=== PATIENT | male | born 1960 | race Caucasian/White ===

== ENCOUNTER 2023-12-16 07:37 | Emergency (ER) | payer OTHER, SELFPAY ==
--- NOTE | ~2023-12-16 | XR_ITS ---
Clinical Indication: Chest pain PA and lateral views of the chest: Comparison: None Findings: The lungs are clear, without evidence of focal consolidation or pleural effusion. Cardiome diastinal silhouette is within normal limits. Bones and soft tissues are unremarkable. Impression: Normal chest. Reviewed, dictated and finalized at location . Impression: Normal chest.
[2023-12-16 07:43] VITALS: BP 175/86; PULSE 61; RESP 17; TEMP 36.6; O2SAT 99
--- NOTE | 2023-12-16 07:43 | ECG_ITS ---
SEE SCANNED COPY FOR CONFIRMED REPORT MTDD
[2023-12-16 07:50] VITALS: O2SAT 98
[2023-12-16 07:57] VITALS: PULSE 58
[2023-12-16 07:58] VITALS: O2SAT 97
[2023-12-16 08:06] LABS: Basophils Absolute Auto 0.1 K/mm3 (0.0-0.1); Basophils Percent Auto 0.8 % (0.2-1.2); Eosinophils Absolute Auto 0.3 K/mm3 (0-0.3); Eosinophils Percent Auto 3.9 % (0-4.4); Hematocrit 34.2 % (42.0-52.0); Hemoglobin 10.6 g/dL (14.0-18.0); Immature Granulocyte Absolute 0.09 K/mm3 (0.00-0.031); Immature Granulocyte Percent A 1.3 % (0-0.5); Lymphocytes Absolute Auto 1.29 K/mm3 (0.9-3.2); Lymphocytes Percent Auto 18.1 % (18.3-44.2); Mean Corpuscular Hemoglobin 29.6 pg (26-34); Mean Corpuscular Volume 95.5 fl (80-100); Mean Platelet Volume 10.2 fl (7.4-10.4); Monocytes Absolute Auto 0.7 K/mm3 (0.1-0.6); Monocytes Percent Auto 9.8 % (2.6-8.5); Neutrophils Absolute Auto 4.7 K/mm3 (1.3-6.7); Neutrophils Percent Auto 66.1 % (45.5-73.1); Platelet Count Result 250 k/mm3 (150-375); Red Blood Count 3.58 M/mm3 (4.6-6.20); Red Cell Distribution Width 15.2 % (11.5-14.5); White Blood Count 7.1 K/mm3 (4.5-10.0)
[2023-12-16 08:15] LABS: Alanine Aminotransferase 21 U/L (6-50); Albumin Level 3.9 g/dL (3.5-5.1); Alkaline Phosphatase 109 U/L (38-126); Anion Gap 0 mmol/L (4-12); Aspartate Amino Transferase 24 U/L (17-59); Bilirubin,Total 0.5 mg/dL (0.2-1.3); Blood Urea Nitrogen 18 mg/dL (9-20); Calcium 10.1 mg/dL (8.4-10.2); Carbon Dioxide 31 mmol/L (22-30); Chloride 111 mmol/L (98-107); Estimated CRCL calculation 103 ml/min; Estimated Glomerular Filt Rate > 60; Glucose 134 mg/dL (65-110); Potassium 4.1 mmol/L (3.4-5.0); Sodium 142 mmol/L (137-145)
[2023-12-16 09:57] LABS: Troponin I < 0.012 ng/mL (0.000-0.034)
[2023-12-16 09:59] VITALS: BP 177/88; PULSE 58; RESP 14; O2SAT 98
[2023-12-16 10:05] VITALS: BP 179/85; PULSE 58; RESP 16; TEMP 36.7; O2SAT 98
--- NOTE | 2023-12-16 14:32 | ED.SOB ---
HPI - SOB/Dyspnea General Chief Complaint: Shortness of Breath/Dyspnea Stated Complaint: sob, cp Time Seen by Provider: 12/16/23 07:44 History of Present Illness HPI Narrative: Patient presenting with shortness of breath, he had been having intercourse when he suddenly felt very short of breath, and then starting to have a cough. Denies any complaints now other than a cough, he is feeling well. Related Data Allergies Allergy/AdvReac Type Severity Reaction Status Date / Time No Known Allergies Allergy Verified 12/16/23 07:58 Review of Systems Review of Systems: All systems reviewed & are unremarkable except as noted in HPI and below Exam Narrative: EXAMINATION OF ORGAN SYSTEMS/BODY AREAS: Constitutional: Vital signs per nursing GENERAL:[No acute distress, non-toxic appearing.] HEAD: Normal with no signs of head trauma. EYES: EOMI, conjunctiva normal ENT: Hearing grossly intact LUNGS: Nonlabored breathing. Clear to auscultation bilaterally HEART: [Regular rate and rhythm] ABD: [Soft], [nontender to palpation] EXT: Normal range of motion SKIN: [No rashes or lesions.] NEURO: [Alert and oriented x 3. No gross focal sensory or strength deficits.] PSYCH: Normal affect Course Vital Signs Vital signs: Vital Signs Temperature 97.9 F 12/16/23 07:43 Pulse Rate 61 12/16/23 07:43 Respiratory Rate 17 12/16/23 07:43 Blood Pressure 175/86 H 12/16/23 07:43 Pulse Oximetry 99 12/16/23 07:43 Oxygen Delivery Autopap 12/16/23 07:43 Temperature 98.1 F 12/16/23 10:05 Pulse Rate 58 L 12/16/23 10:05 Respiratory Rate 16 12/16/23 10:05 Blood Pressure 179/85 H 12/16/23 10:05 Pulse Oximetry 98 12/16/23 10:05 Oxygen Delivery Autopap 12/16/23 07:58 MDM - SOB/Dyspnea MDM Narrative Medical decision making narrative: ED COURSE AND MEDICAL DECISION MAKIN-year-old male presenting with shortness of breath and coughing with some chest tightness that started last night after intercourse. EKG done in triage negative for acute ischemic changes. Cardiac workup is initiated. EKG: Performed in triage and interpreted by me. Normal sinus rhythm. Rate 61. Normal axis. MA normal. QRS duration normal. QTc normal. No pathologic Q waves. No ST segment elevation or depression to suggest acute ischemia. No RV strain pattern. HEART score is 2 with no acute ischemic changes on EKG and negative troponin making ACS unlikely. Wells low risk with negative PERC making PE unlikely. Presentation not consistent with dissection or aneurysm without radiation of pain or pulse deficits. CXR negative for mediastinal widening. No abdominal pain or signs of sepsis that would be concerning for esophageal perforation or mediastinitis. No cardiomegaly or JVD to suggest pericardial effusion/tamponade. On repeat evaluation just prior to discharge, the patient is no acute distress. I had a long discussion with the patient and with shared decision making, [he] is comfortable with outpatient management. I have let him know he should follow up with the manual tester for further evaluation and testing, and to talk to his doctor to make sure that we have better control of his blood pressure to risk factors disease like heart attack, stroke, kidney disease, that come with having both diabetes and hypertension. [He] was given clear return instructions by myself in person as well as on discharge paperwork. Procedures: Pulse oximetry interpretation - not hypoxic. EKG interpretation. Review of medical records. Lab Data 12/16/23 07:59 12/16/23 07:59 Labs: Lab Results 12/16/23 Range/Units 07:59 WBC 7.1 (4.5-10.0) K/mm3 RBC 3.58 L (4.6-6.20) M/mm3 Hgb 10.6 L (14.0-18.0) g/dL Hct 34.2 L (42.0-52.0) % MCV 95.5 (80-100) fl MCH 29.6 (26-34) pg MCHC 31.0 L (32-36) g/dl RDW 15.2 H (11.5-14.5) % Plt Count 250 (150-375) k/mm3 MPV 10.2 (7.4-10.4) fl Immature Gran % (Auto) 1.3 H (0-
== END 2023-12-16 10:07 | disposition home or self-care (01) ==
PROVIDERS: Emergency Provider Emergency Medicine; PCP Internal Medicine
DX: R07.89 Other chest pain (principal); R05.9 Cough, unspecified
CPT/HCPCS: 36415; 71046; 80053; 84484; 85025; 93005; 99284